=== PATIENT | male | born 1980 | race Caucasian/White ===

== ENCOUNTER 2019-03-15 14:32 | Emergency (ER) | payer OTHER ==
[~2019-03-15] VITALS: Ht 180.3 cm; Wt 97.5 kg
[2019-03-15 15:30] LABS: URINE BILIRUBIN 2+ (Negative); URINE BLOOD NEGATIVE (Negative); URINE CLARITY CLEAR; URINE GLUCOSE-RANDOM* NEGATIVE (Negative); URINE KETONES TRACE (Negative); URINE LEUKOCYTES-REFLEX NEGATIVE (Negative); URINE PROTEIN (DIPSTICK) TRACE (Negative); URINE SPECIFIC GRAVITY 1.015 (1.005-1.035); URINE UROBILINOGEN >= 8.0 E.U./dl (0.2-1.0)
[2019-03-15 15:36] LABS: URINE NITRITE-REFLEX POSITIVE (Negative)
[2019-03-15 15:37] LABS: ICTOTEST (BILI CONFIRMATORY) Positive (Negative); URINE COLOR ORANGE
[2019-03-15 15:46] LABS: CASTS None Seen /LPF (None Seen); CRYSTALS None Seen /LPF (None Seen); MUCUS >6 Heavy strn/LPF (None Seen); SQUAMOUS 0-3 Few /LPF (0-3); URINE RBC None Seen /HPF (0-2); URINE WBC-REFLEX 0-5 Rare /HPF (0-5)
[2019-03-15 16:33] LABS: ABSOLUTE NEUTROPHILS 9.4 thou/uL (1.4-8.2); BASOPHILS 0.6 % (0.0-2.0); EOSINOPHILS 0.2 % (0.0-3.0); HEMATOCRIT 43.6 % (42.0-52.0); HEMOGLOBIN 14.9 gm/dL (14.0-18.0); LYMPHOCYTES 6.9 % (24.0-44.0); MCH 35.6 pg (26.0-34.0); MCHC 34.2 g/dL (28.0-37.0); MCV 104.1 fL (80.0-100.0); MONOCYTES 5.3 % (1.0-8.0); PLATELET COUNT 155 thou/uL (150-400); RBC 4.19 mil/uL (4.50-6.00); RDW 16.3 % (10.5-14.5); WBC 10.8 thou/uL (4.0-11.0)
[2019-03-15 16:34] LABS: CALCIUM 8.8 mg/dL (8.5-10.1); CREATININE 0.7 mg/dL (0.7-1.3); POTASSIUM 3.8 mmol/L (3.5-5.1)
[2019-03-15 16:43] LABS: DIRECT BILIRUBIN 2.8 mg/dL (<0.1-0.3); TOTAL BILIRUBIN 7.2 mg/dL (<0.1-1.0)
[2019-03-15] MEDS ORDERED: LEVAQUIN 500 M500 M3 PO (23:05)
[2019-03-15] MEDS ORDERED: ZOFRAN ODT4 MG PO (23:07)
[2019-03-15 23:24] VITALS: BP 125/73
== END 2019-03-15 23:24 | disposition home or self-care (01) ==
LOC: ER 14:32
PROVIDERS: Emergency Medicine
DX: N12 Tubulo-interstitial nephritis, not specified as acute or chronic (principal); E87.2 Acidosis; N45.1 Epididymitis; R11.10 Vomiting, unspecified; Z87.442 Personal history of urinary calculi

== ENCOUNTER 2019-04-21 07:40 | Inpatient (IN) | payer OTHER ==
[2019-04-21] VITALS (7 sets, daily range): BP systolic 125–148; BP diastolic 67–93
[~2019-04-21] VITALS: Ht 180.3 cm; Wt 102.4 kg
[~2019-04-21 07:40] MED LIST: LEVAQUIN 500 M500 M3 PO; ZOFRAN ODT4 MG PO
[2019-04-21 08:26] LABS: ABSOLUTE NEUTROPHILS 7.4 thou/uL (1.4-8.2); BASOPHILS 1.3 % (0.0-2.0); EOSINOPHILS 0.6 % (0.0-3.0); HEMATOCRIT 36.2 % (42.0-52.0); HEMOGLOBIN 12.2 gm/dL (14.0-18.0); LYMPHOCYTES 5.3 % (24.0-44.0); MCH 36.4 pg (26.0-34.0); MCHC 33.8 g/dL (28.0-37.0); MCV 107.5 fL (80.0-100.0); PLATELET COUNT 133 thou/uL (150-400); POLYS 82.8 % (36.0-66.0); RBC 3.37 mil/uL (4.50-6.00); RDW 15.9 % (10.5-14.5); WBC 8.9 thou/uL (4.0-11.0)
[2019-04-21 08:42] LABS: CALCIUM 8.6 mg/dL (8.5-10.1); CREATININE 0.7 mg/dL (0.7-1.3); POTASSIUM 3.4 mmol/L (3.5-5.1)
[2019-04-21 08:46] LABS: ALBUMIN 2.6 g/dL (3.4-5.0); TOTAL PROTEIN 7.4 g/dL (6.4-8.2)
[2019-04-21 08:49] LABS: TOTAL BILIRUBIN 11.1 mg/dL (<0.1-1.0)
[2019-04-21 09:27] LABS: ANISOCYTOSIS 1+; MACROCYTES 2+; PLATELET ESTIMATE NORMAL
[2019-04-21 09:33] LABS: APTT 37.3 Seconds (24.5-32.8); INR 2.1; PROTIME 21.4 Seconds (9.3-11.4)
[2019-04-21 09:45] LABS: URINE BILIRUBIN 3+ (Negative); URINE BLOOD NEGATIVE (Negative); URINE CLARITY CLEAR; URINE COLOR DARK YELLOW; URINE GLUCOSE-RANDOM* TRACE (Negative); URINE KETONES TRACE (Negative); URINE LEUKOCYTES-REFLEX NEGATIVE (Negative); URINE NITRITE-REFLEX POSITIVE (Negative); URINE PROTEIN (DIPSTICK) TRACE (Negative); URINE SPECIFIC GRAVITY 1.025 (1.005-1.035)
[2019-04-21 09:46] LABS: ICTOTEST (BILI CONFIRMATORY) Positive (Negative)
[2019-04-21 09:56] LABS: AMP/METHAMP Negative (Negative); BARBITURATES Negative (Negative); BENZODIAZEPINES Negative (Negative); COCAINE Negative (Negative); METHADONE POSITIVE (Negative); OPIATES Negative (Negative); PCP Negative (Negative)
[2019-04-21 10:14] LABS: CASTS None Seen /LPF (None Seen); SQUAMOUS 0-3 Few /LPF (0-3); URINE WBC-REFLEX 0-5 Rare /HPF (0-5)
[2019-04-21 10:15] LABS: BACTERIA-REFLEX 1-9 Few /HPF (None Seen); CRYSTALS None Seen /LPF (None Seen); URINE RBC None Seen /HPF (0-2)
[2019-04-21 10:27] LABS: FOLIC ACID 1.1 ng/mL (8.6-58.9)
[2019-04-21 13:35] LABS: % SATURATION 64 % (20-39); IRON 55 ug/dL (65-175); TIBC 86 ug/dL (250-450)
--- NOTE | 2019-04-21 14:14 | NUR ---
pt is A&OX3, PT's coughing has improved, pt is off o2 , pt's vs, bs and o2sat are stable, pt denies pain and sob with activity, RN received order [facility], pt's family stay at pt's bedside.
--- NOTE | 2019-04-21 15:35 | NUR ---
ASSESSMENT: CM REVIEWED CHART AND MET WITH PATIENT AT THE BEDSIDE. PT IS ALERT AND ORIENTED X4. PT REPORTS HE LIVES IN A HOUSE WITH OTHER PEOPLE BUT STAYS IN THE BASEMENT. PT REPORTS HAVING ABOUT 7 STEPS WITH HANDRAILS. PT REPORTS HE IS FULLY INDEPENDENT WITH ADLS AND AMBULATION. PT REPORTS HE HAS NOT HAD HH IN THE PAST NOR BEEN TO A SNF/REHAB. CM DISCUSSED ROLE. CM ASKED IF PATIENT HAS NO INSURANCE. PT STATES HE SIGNED UP FOR [employer] YESTERDAY BUT IS NOT SURE IF IT IS ACTIVE OR WHEN IT BECOMES ACTIVE BUT DID SIGN THE PAPERWORK YESTERDAY HE STATES. CM NOTIFIED [employer] TO SEE IF THEY COULD VERIFY AND LEFT VM WITH [phone]. PT REPORTS HE DOES NOT CURRENTLY HAVE A PCP. CM PROVIDED PATIENT WITH [employer] [facility] [employer] WELL FIND A PHYSICIAN RESOURCE SHEET IF PATIENTS INSURANCE IS NOT ACTIVE. PT IS HOPEFUL TO RETURN HOME AT DISCHARGE.
--- NOTE | 2019-04-21 19:32 | NUR ---
PT admitted from ER for N/V and both flank pain, pt is A&OX3, PT is NPO, and he is continuing IV fliud, and pain management , pt's n/v has improved, RN has called dr for pain medications , and abnormal results, new order received, pt's is on CIWA protocol, score 2-4, no medicatiom needs at day shift, pt's ABD US has done today. GI has consult.
[2019-04-21 20:06] LABS: IgG 1666 mg/dL (700-1600)
[2019-04-22] VITALS (7 sets, daily range): BP systolic 91–128; BP diastolic 49–78
--- NOTE | 2019-04-22 04:05 | NUR ---
PATIENT IS ADVANCING SLOWLY IN HIS CARE PLAN. VITAL SIGNS STABLE WITH PATIENT HAVING MULTIPLE COMPLAINTS OF NAUSEA AND PAIN TREATED APPROPRIATELY THROUGH MEDICATION AND NON PHARMACOLOGICAL INTERVENTIONS. FULLY ORIENTED, PATIENT IS ABLE TO CALL APPROPRIATELY FOR NEEDS AND PARTICIPATE IN CARE PLAN. NPO THROUGHOUT SHIFT TO ALLOW FOR GI REST AND IN ANTICIPATION OF MULTIPLE PROCEDURES TODAY. CIWA PER PROTOCOL WITH PATIENT BEING MEDICATED ONCE SO FAR THIS SHIFT. PATIENT WAS HIGHLY ANXIOUS AND HAD COMPLAINTS OF NAUSEA, HEADACHE AND TREMOR IN HANDS. UP MULTIPLE TIMES TO BATHROOM WITH STANDBY ASSISTANCE INCIDENT FREE. PATIENT IS MORSED < 45 BUT HAS AGREED TO BED ALARM AND STANDBY ASSISTANCE DUE TO MEDICATION PROVIDED. MULTIPLE BOWEL MOVEMENTS DURING SHIFT. CONTINUE PLAN OF CARE.
[2019-04-22 06:22] LABS: CALCIUM 7.9 mg/dL (8.5-10.1); CREATININE 0.7 mg/dL (0.7-1.3); MAGNESIUM 1.8 mg/dL (1.8-2.4); POTASSIUM 3.7 mmol/L (3.5-5.1)
[2019-04-22 10:07] LABS: HIV ANTIBODY Non Reactive (Non Reactive)
[2019-04-22 10:07] LABS: HAV IgM AB (ANTI-HAV IgM) Negative (Negative); HEPATITIS B SURFACE AG Negative (Negative); HEPATITIS C VIRUS AB 0.3 (0.0-0.9)
[2019-04-22 13:53] LABS: ALBUMIN 2.2 g/dL (3.4-5.0); DIRECT BILIRUBIN 3.3 mg/dL (<0.1-0.3); TOTAL BILIRUBIN 6.8 mg/dL (<0.1-1.0); TOTAL PROTEIN 5.9 g/dL (6.4-8.2)
[2019-04-22 14:11] LABS: ANA INTERPRETATION Negative (Negative)
[2019-04-22 16:08] LABS: CERULOPLASMIN 13.5 mg/dL (16.0-31.0)
--- NOTE | 2019-04-22 16:42 | NUR ---
PT IS ALERT AND ORIENTED X3 . VERY ANXIOUS AT THIS TIME. ATIVAN GIVEN PT STILL ANXIOUS IN ACUTE LIVER FAILURE. ETOH USE. WANTING TO MAYBE LEAVE AMA EXPLAIN TO PT HE SHOULD STAY FOR CARE AND EVALUATION AND TREATMENT. BED ALARM IS ON AND HE IS ANXIOUS. TREAMORS MILDY NOW. ABODEM IS ROUND AND JAUDICE EYES AND SKIN NOTED. WILL CONTINUE ON GOING CARE AND IF NEED WILL GET DOCTOR TO DISCUSS AMA AND PLAN OF CARE
--- NOTE | 2019-04-22 19:16 | NUR ---
PATIENT TRANSFERED TO ICU. RECIEVED REPORT FROM DIO MALDONADO, ON . PATIENT SETTLED IN BED AND EDUCATED ON ROOM/FALL PRECAUTIONS. PATIENT ASSESED AND STARTED ON PRECEDEX GTT. WILL MONITOR PATIENT PER ICU PROTOCOL.
[2019-04-23] VITALS (37 sets, daily range): BP systolic 84–113; BP diastolic 43–93
--- NOTE | 2019-04-23 05:13 | NUR ---
PT HAS NOT URINATED SINCE ARRIVAL TO THE ICU. BLADDER SCANNER SHOWED 230ML. ADY BASS NOTIFIED. ORDERS TO BLADDER SCAN PATIENT AGAIN AT 0900 AND REASSESS THE NEED THEN FOR STRAIGHT CATH/LEBLANC.
[2019-04-23 05:24] LABS: HEMATOCRIT 29.6 % (42.0-52.0); MCH 37.2 pg (26.0-34.0); MCV 109.4 fL (80.0-100.0); RBC 2.71 mil/uL (4.50-6.00); RDW 16.4 % (10.5-14.5); WBC 5.2 thou/uL (4.0-11.0)
[2019-04-23 05:30] LABS: HEMOGLOBIN 10.1 gm/dL (14.0-18.0)
[2019-04-23 05:38] LABS: CALCIUM 8.1 mg/dL (8.5-10.1); CREATININE 0.9 mg/dL (0.7-1.3); POTASSIUM 3.9 mmol/L (3.5-5.1); TOTAL PROTEIN 5.9 g/dL (6.4-8.2)
[2019-04-23 05:40] LABS: TOTAL BILIRUBIN 5.4 mg/dL (<0.1-1.0)
[2019-04-23 05:44] LABS: INR 2.3; PROTIME 24.4 Seconds (9.3-11.4)
[2019-04-23 10:34] LABS: BE(vivo) -2.7 mmol/L (-2 to +3); HCO3 21.4 mmol/L (22.0-26.0); pH 7.405 (7.360-7.450); sO2 88.5 % (92.0-98.0)
[2019-04-23 10:35] LABS: PO2 53.9 mmHg (80.0-100.0)
[2019-04-23 14:25] LABS: CLARITY CLOUDY; COLOR YELLOW; SOURCE THORACENTESIS; TOTAL VOLUME 35 mL
--- NOTE | 2019-04-23 14:30 | NUR ---
Ultrasound guided thoracentesis was done at the bedside by Dr Acosta and assist by Ever from Ultrasound. Fluid removed from right lung. Specimen sent to the lab by Ever. Pt tolerated without problems. Bandaid to site. O2 is at 4.5 liter high flow cannula.
[2019-04-23 14:58] LABS: BF NUCLEATED CELLS 394; BF RBC 2354
--- NOTE | 2019-04-23 15:57 | NUR ---
TRANSFERRED TO ICU R/T ELEVATED CIWA SCORES AND ON PRECEDEX GTT. NO W/E DC PLANNED.
[2019-04-23 16:48] LABS: BF MACROPHAGE 55; BF NEUTROPHILS 2
--- NOTE | 2019-04-23 19:00 | NUR ---
Pt partially oriented but has some difficutly with answering orientation questions. Increasing restlessness and CIWA toward end of the shift. One dose of Ativan given and Precedex gtt titrated up. Pt dozed off after Ativan and Precedex adjustment. Report given to RN assuming care.
[2019-04-24] VITALS (7 sets, daily range): BP systolic 94–136; BP diastolic 53–85
--- NOTE | 2019-04-24 04:46 | NUR ---
ASSESSMENT: PT TRANSFERRED TO THIS UNIT AT APPROXIMATELY 0230 FROM ICU. PT IS ALERT AND ORIENT TIMES TWO, FORGETFUL TO SITUATION AND TIME. PT C/O LEFT SHOULDER AND BACK PAIN. PRN PAIN MEDICATION GIVEN WITH PARTIAL RELIEF. SR PER MONITOR. LEBLANC PRESENT, UO LOW. CIWA SCORE 0, LORAZEPAM GIVEN PO. SR PER MONITOR. SLOW PROGRESS TOWARDS DC GOALS, WILL CONTINUE TO MONITOR.
[2019-04-24 06:13] LABS: HEMATOCRIT 32.5 % (42.0-52.0); HEMOGLOBIN 11.1 gm/dL (14.0-18.0); MCH 37.1 pg (26.0-34.0); MCHC 34.2 g/dL (28.0-37.0); MCV 108.7 fL (80.0-100.0); RBC 2.99 mil/uL (4.50-6.00); RDW 16.4 % (10.5-14.5)
[2019-04-24 06:27] LABS: INR 1.7; PROTIME 17.6 Seconds (9.3-11.4)
[2019-04-24 06:39] LABS: ALBUMIN 2.1 g/dL (3.4-5.0); CALCIUM 7.8 mg/dL (8.5-10.1); CREATININE 0.9 mg/dL (0.7-1.3); MAGNESIUM 1.8 mg/dL (1.8-2.4); POTASSIUM 3.7 mmol/L (3.5-5.1); TOTAL BILIRUBIN 4.5 mg/dL (<0.1-1.0); TOTAL PROTEIN 6.2 g/dL (6.4-8.2)
--- NOTE | 2019-04-24 15:32 | NUR ---
ASSUMED CARE PT AT SHIFT CHANGE. ASSESSMENTS CHARTED. MEDS GIVEN PER JUL. PT ALERT AND ORIENTED,DROWSY, CIWA PROTOCOL FOLLOWED. APPETITE ADEQUATE, LOW URINE OUTPUT NOTED, 24 HOUR URINE COLLECTION FOR COPPER ORDERED PER GI AND WAS STARTED AT 1437. DENIES CHEST PAIN/SOB. O2 SATS WNL ON ROOM AIR. PT UP AND WALKED UNIT THIS SHIFT TOLERATING WELL. PAIN MANAGED PER PO PAIN MEDS. WILL CONT TO ASSESS PAIN, CIWA AND OVERALL ORIENTATION. PT UNABLE TO FIND CELL PHONE- CLAIMS HE HAD IT BEFORE COMING TO THIS UNIT. BOTH [facility] AND ICU WERE CALLED TO SEE IF CELL PHONE WAS LEFT BEHIND, SECURITY WAS ALSO CALLED TO SEE IF CELL PHONE WAS TURNED IN. WILL CONTINUE TO ATTEMPT TO FIND CELL PHONE. PT CURRENTLY SLEEPING, NO APPARENT NEEDS AT THIS TIME. WILL CONT TO MONITOR AND FOLLOW POC.
[2019-04-24 16:06] LABS: MITOCHONDRIAL ANTIBODY <20.0 Units (0.0-20.0)
[2019-04-24 18:09] LABS: SMOOTH MUSCLE ANTIBODY 1 Units (0-19)
[2019-04-25 05:01] LABS: CALCIUM 7.7 mg/dL (8.5-10.1); CREATININE 0.9 mg/dL (0.7-1.3); POTASSIUM 3.4 mmol/L (3.5-5.1); TOTAL PROTEIN 5.9 g/dL (6.4-8.2)
[2019-04-25 05:02] LABS: TOTAL BILIRUBIN 3.8 mg/dL (<0.1-1.0)
[2019-04-25 05:53] VITALS: BP 112/75
[2019-04-25 08:20] VITALS: BP 113/72
[2019-04-25 09:10] LABS: BODY FLUID ALBUMIN 0.9 g/dL (Not Estab.); BODY FLUID AMYLASE 6 U/L (()); BODY FLUID GLUCOSE 97 mg/dL (()); BODY FLUID LDH 110 IU/L (())
[2019-04-25 11:50] VITALS: BP 123/69
[2019-04-25 16:20] VITALS: BP 125/66
--- NOTE | 2019-04-25 19:59 | NUR ---
RECEIVED PT'S CARE AROUN 0730; PT. ON BED; AOX4; DURING ASSESSMENT C/O PAIN OVER LOWER ABDOMEN; PRN PAIN MEDICATION NOT DUE; EDUCATED ABOUT Q6H; ST. UNDERSTANDING; REMAINED ABOUT COLLECTING URINE; ST. UNDERSTANDING; AM MEDICATIONS GIVEN; PER PHYSICIAN FLUIDS D/C; HAD LARGE BM EARLY ON THE AFTERNOON; INCONTINENT; SHOWER TAKEN; DURING THE AFTERNOON PT. RESTING WITH EYES CLOSED DURING ROUNDINGS; ASSESSMENT CHARGED; FOLLOWING POC; PASSED ON REPORT;
[2019-04-25 20:48] VITALS: BP 124/60
[2019-04-26 04:00] VITALS: BP 124/73
[2019-04-26 05:33] LABS: HEMATOCRIT 30.2 % (42.0-52.0); HEMOGLOBIN 10.4 gm/dL (14.0-18.0); MCH 37.2 pg (26.0-34.0); MCHC 34.3 g/dL (28.0-37.0); MCV 108.5 fL (80.0-100.0); RBC 2.79 mil/uL (4.50-6.00); RDW 17.2 % (10.5-14.5); WBC 6.4 thou/uL (4.0-11.0)
[2019-04-26 05:45] LABS: CREATININE 0.8 mg/dL (0.7-1.3); POTASSIUM 3.2 mmol/L (3.5-5.1); TOTAL BILIRUBIN 3.1 mg/dL (<0.1-1.0); TOTAL PROTEIN 5.8 g/dL (6.4-8.2)
--- NOTE | 2019-04-26 05:51 | NUR ---
ASSESSMENTS CHARTED, MEDS GIVEN RECORDED. PATIENT IS ANXIOUS DURING SHIFT, WORRIED ABOUT MISSING PHONE, AND CONNECTING WITH FAMILY. ASKING WHEN HE WILL GET DISCHARGED. PATIENT ON LACTOLOSE THERAPY, HAVING LIQUID STOOLS. FINISHED 24 HOUR URINE SAMPLE. UP WITH ASSIST TO BATHROOM. FALL PRECAUTIONS IN PLACE, DENIES PAIN HIGHER THAN 3 WHICH HE SAYS DOES NOT REQUIRE ANY PAIN MEDS.
[2019-04-26 07:35] VITALS: BP 117/63
[2019-04-26 08:04] LABS: SOURCE THORACENTESIS
[2019-04-26 11:32] VITALS: BP 115/77
[2019-04-26 15:50] VITALS: BP 122/67
--- NOTE | 2019-04-26 17:06 | PATH ---
[facility] [address] [place] [address] PATHOLOGY RPT PROCEDURE Name: COLE TILLEY Room #: 215-P ADM IN M.R.#: [id number] Admission: 04/21/19 Date of : 78 Discharge: Report #: [id number] Path Case #: [id number] Note [facility] Accession Number: [id number] TESTS RESULT FLAG UNITS REF RANGE LAB Clinician Provided Cytology Information No. of containers..01 Other (Miscellaneous) Source: 01 PLEURAL FLUID DIAGNOSIS: 02 PLEURAL FLUID NEGATIVE FOR MALIGNANT EPITHELIAL CELLS. REACTIVE MESOTHELIAL CELLS ARE PRESENT. THIS INTERPRETATION INCLUDES EVALUATION OF A CELL BLOCK. Pathologist ICD10: 02 R94.5 Signed out by: Wendi Romero MD, Pathologist NPI- [id number] Performed by: Joshua Gaxiola, Reading Aide ([facility]) Gross description: 01 10 ML, YELLOW, CLEAR /LCS 06/01/1840 0000 Local FLAG LEGEND: L-Low Normal,H-High Normal,LL-Alert Low,HH-Alert High <-Panic Low,>-Panic High,A-Abnormal,AA-Critical Abnormal Performed at: [address] [place] [address] Bob Villafana MD, [address] [id number] Wendi Romero MD, Specimen Comment: A courtesy copy of this report has been sent to [phone] Specimen Comment: [id number] Specimen Comment: Report sent to Performed at: [address], [place], [place] [id number] MD Bob Villafana MD Phone: [phone]
--- NOTE | 2019-04-26 18:07 | NUR ---
ASSUMED CARE 0700, ALERT X 3 WITH FORGETFULLNES TO NAME OF HOSPITAL. APPROPRIAT AND CALM. KYLIE PAIN, DENIES NAUSEA, STATES HE IS MODERATELY ANXIOUS DURING 1600 ROUND AND SCORED A 7 ON CIWA HOWEVER, PATIENT DOES NOT HAVE VISIBLE TREMORS, SWEATS, NOR ANXIETY, PT REMAINS CALM AND RESTING DURING ROUNDS. THERAPY NOTES INDICATED PT DOES NOT NEED ASSISTANCE WITH AMBULATIONS. STEADY GAIT. CALL LIGHT IN REACH. POSSIBLE DC IN MORNING.
[2019-04-26 20:08] VITALS: BP 111/67
[2019-04-27 04:36] VITALS: BP 105/64
--- NOTE | 2019-04-27 05:46 | NUR ---
ASSUMED PT CARE AT 1900. VSS. PT A&X4. CIWA LESS THAN 3 THIS SHIFT. PT IS STAEADY ON HIS FEET. PT COMPLAINED OF SLIGHT HEADACHE EARLIER. PT WAS TEARFUL WHEN ASKED ABOUT DRINKING HABIT AND STATED HE WASNT READY TO TALK ABOUT IT. PT UNINTENTIONALLY PULLED OUT IV, NEW IV PLACED IN R HAND. PT IS STABLE SR ON THE MONITOR, WILL CONTINUE TO MONITOR. PER POC.
[2019-04-27 08:00] VITALS: BP 112/64
[2019-04-27] MEDS ORDERED: AUGMENTIN 875-1 EACH PO (10:41)
[2019-04-27] MEDS ORDERED: SPIRONOLACTONE25 M1 PO (10:42)
[2019-04-27] MEDS ORDERED: TRAMADOL 50 MG50 MG PO (10:42)
[2019-04-27] MEDS ORDERED: CHLORDIAZEPOXID10 MG PO (10:42)
[2019-04-27] MEDS ORDERED: LACTULOSE20 GM/30 M PO (10:43)
[2019-04-27] MEDS ORDERED: PRENATAL PO (10:43)
[2019-04-27] MEDS ORDERED: VITAMIN B-1100 M2 PO (10:43)
[2019-04-27 12:00] VITALS: BP 114/65
[2019-04-27 13:37] VITALS: BP 114/65
--- NOTE | 2019-04-27 14:04 | NUR ---
patient to fl home today. Vouched medications in amount of $35.46. did not vouch vitamins and controlled substance medications.
--- NOTE | 2019-04-27 14:25 | NUR ---
ASSUMED CARE 0700. ALERT X4, DROWSY AND AWAKEN EASILY. PAIN MANAGED WITH MEDICATION, UP AB HANS, DC HOME WITH SELF CARE. PHARMACY FILLED ANTIBIOTIC,ALDACTONE, LACTULOSE. PATIENT TO FILL PAIN AND ANTI-AXIETY RX AND SUPPLEMENTS SELF PAY. REVIEWED DC PAPER WORK, EDUCATED TO FOLLOW UP WITH PCP. IV AND HEART MONITOR REMOVED
== END 2019-04-27 15:00 | disposition home or self-care (01) | DRG 441 ==
LOC: ER 07:40 → ICU 09:23 → EROBS 09:23 → 3W 10:31 → ICU 04-22 18:58 → 2N 04-24 02:14 → ENTRNSPT 04-27 14:23 → 2N 04-27 15:00 → EDTRNSPTSTS 04-27 15:11
PROVIDERS: Emergency Medicine; Internal Medicine Pulmonary Disease; Nurse Practitioner; Specialist; ADMIT Internal Medicine
PROC: 0DJ08ZZ Inspection of Upper Intestinal Tract, Via Natural or Artificial Opening Endoscopic (ICD-10-PCS; principal; 2019-04-22)
PROC: 0W993ZZ Drainage of Right Pleural Cavity, Percutaneous Approach (ICD-10-PCS; 2019-04-23)
DX: K72.90 Hepatic failure, unspecified without coma (principal); J69.0 Pneumonitis due to inhalation of food and vomit; E43 Unspecified severe protein-calorie malnutrition; J96.01 Acute respiratory failure with hypoxia; D68.9 Coagulation defect, unspecified; E72.20 Disorder of urea cycle metabolism, unspecified; E87.2 Acidosis; K76.6 Portal hypertension; J98.11 Atelectasis; F11.20 Opioid dependence, uncomplicated; J91.8 Pleural effusion in other conditions classified elsewhere; K70.11 Alcoholic hepatitis with ascites; E80.6 Other disorders of bilirubin metabolism; F10.10 Alcohol abuse, uncomplicated; R91.1 Solitary pulmonary nodule; K74.60 Unspecified cirrhosis of liver; I83.90 Asymptomatic varicose veins of unspecified lower extremity; K31.89 Other diseases of stomach and duodenum; G89.29 Other chronic pain; M54.9 Dorsalgia, unspecified; Z87.891 Personal history of nicotine dependence; Z79.899 Other long term (current) drug therapy
CPT/HCPCS: 10078; 10080; 10081; 10879; 62110; 62900; 70005